=== PATIENT | female | born 1985 | race Caucasian/White ===

== ENCOUNTER 2017-12-26 07:34 | Inpatient (IN) | payer MEDICAID ==
[2017-12-26 08:42] LABS: ADD MAN DIFF? NO
[2017-12-26 08:50] LABS: WHITE BLOOD COUNT 9.7 10^3/ul (4.8-10.8)
[2017-12-26 08:50] LABS: BASOPHILS % 0.3 % (0.0-2.0); EOSINOPHILS # 0.1 10^3/ul (0.0-0.5); EOSINOPHILS % 0.6 % (0.0-7.0); HEMATOCRIT 38.8 % (37.0-47.0); HEMOGLOBIN 12.9 g/dl (12.0-16.0); LYMPHOCYTES # 1.5 10^3/ul (0.8-2.9); LYMPHOCYTES % 15.5 % (15.0-51.0); MEAN CORPUSCULAR HEMOGLOBIN 29.7 pg (29.0-33.0); MEAN CORPUSCULAR HGB CONC 33.2 g/dl (32.0-37.0); MEAN CORPUSCULAR VOLUME 89.2 fl (82.0-101.0); MONOCYTE # 0.5 10^3/ul (0.3-0.9); MONOCYTES % 5.2 % (0.0-11.0); NEUTROPHIL # 7.6 10^3/ul (1.6-7.5); NEUTROPHILS % 77.8 % (39.0-77.0); PLATELET COUNT 245 10^3/UL (140-415); RED BLOOD COUNT 4.35 10^6/ul (4.20-5.40); RED CELL DISTRIBUTION WIDTH 13.2 % (11.5-14.5)
[2017-12-26 08:54] LABS: INR 0.89; PROTIME 12.1 Sec (11.9-14.9); PT RATIO 0.9
[2017-12-26 08:55] LABS: PARTIAL THROMBOPLASTIN TIME 26.2 Sec (25.0-35.0)
[2017-12-26] MEDS ORDERED: KETOROLAC 30 MG INJ IV (09:00)
[2017-12-26] MEDS ORDERED: LIDOCAINE 1% (MPF) 30 ML INJ INJ (09:00)
[2017-12-26] MEDS ORDERED: MISOPROSTOL 200 MCG TAB PR (09:00)
[2017-12-26] MEDS ORDERED: NALOXONE (0.4 MG/ML) INJ IV (09:00)
[2017-12-26] MEDS ORDERED: METHYLERGONOVINE 0.2 MG INJ IM (09:00)
[2017-12-26] MEDS ORDERED: OXYTOCIN 30 UNITS/LR 500 ML IV (09:00)
[2017-12-26] MEDS ORDERED: DIPHENHYDRAMINE 50 MG INJ IV (09:00)
[2017-12-26] MEDS ORDERED: HYDROmorphONE 0.5 MG/0.5 ML SYG IV ×2 (09:00)
[2017-12-26] MEDS ORDERED: ONDANSETRON 4 MG INJ IV (09:00)
[2017-12-26] MEDS ORDERED: CARBOPROST 250 MCG INJ IM (09:00)
[2017-12-26] MEDS ORDERED: ZOLPIDEM 5 MG TAB PO (09:00)
[2017-12-26] MEDS ORDERED: BUTORPHANOL 2 MG INJ IV (09:00)
[2017-12-26] MEDS: LACTATED RINGER'S 1,000 ML IV* (09:01)
[2017-12-26] MEDS: FENTAnyl 2MCG/ML-ROPIV 0.2% 100 ML BAG EPI (09:01)
[2017-12-26 09:44] LABS: HEPATITIS B SURFACE ANTIBODY NEGATIVE (NEGATIVE)
[2017-12-26] MEDS: OXYTOCIN 30 UNITS/LR 500 ML IV ×3 (14:40→18:14)
[2017-12-26] MEDS: LANOLIN 7 GM TUBE TOP (18:29)
[2017-12-26] MEDS: BENZOCAINE 20% 56 ML SPRAY TOP (18:29)
[2017-12-26] MEDS: IBUPROFEN 600 MG TAB PO ×2 (18:29→23:39)
[2017-12-26] MEDS: WITCH HAZEL/GLYCERIN PAD PR (18:30)
[2017-12-26 20:03] LABS: RAPID PLASMA REAGIN NONREACTIVE (NR)
[2017-12-27] MEDS: IBUPROFEN 600 MG TAB PO ×4 (06:35→23:43)
[2017-12-27 08:23] LABS: ADD MAN DIFF? NO
[2017-12-27 08:26] LABS: BASOPHILS % 0.2 % (0.0-2.0); EOSINOPHILS # 0.1 10^3/ul (0.0-0.5); EOSINOPHILS % 0.6 % (0.0-7.0); HEMATOCRIT 28.4 % (37.0-47.0); HEMOGLOBIN 9.4 g/dl (12.0-16.0); LYMPHOCYTES # 1.3 10^3/ul (0.8-2.9); LYMPHOCYTES % 12.8 % (15.0-51.0); MEAN CORPUSCULAR HEMOGLOBIN 29.6 pg (29.0-33.0); MEAN CORPUSCULAR HGB CONC 33.1 g/dl (32.0-37.0); MEAN CORPUSCULAR VOLUME 89.3 fl (82.0-101.0); MEAN PLATELET VOLUME 11.2 fl (7.4-10.4); MONOCYTE # 0.4 10^3/ul (0.3-0.9); MONOCYTES % 4.3 % (0.0-11.0); NEUTROPHIL # 8.2 10^3/ul (1.6-7.5); NEUTROPHILS % 81.5 % (39.0-77.0); PLATELET COUNT 177 10^3/UL (140-415); RED BLOOD COUNT 3.18 10^6/ul (4.20-5.40); RED CELL DISTRIBUTION WIDTH 13.5 % (11.5-14.5)
[2017-12-27 08:26] LABS: WHITE BLOOD COUNT 10.1 10^3/ul (4.8-10.8)
[2017-12-28] MEDS: IBUPROFEN 600 MG TAB PO ×2 (05:47→12:03)
[2017-12-28] MEDS: WITCH HAZEL/GLYCERIN PAD PR (05:47)
[2017-12-28] MEDS: MAGNESIUM HYDROXIDE 30ML CUP PO (09:14)
[2017-12-28] MEDS: FERROUS GLUCONATE (EC) 325 MG TAB PO (12:03)
== END 2017-12-28 15:40 | disposition home or self-care (01) | DRG 775 ==
LOC: OBT 07:34 → L-D 07:34 → OBT 07:35 → L-D 07:35 → PP1 17:15
PROVIDERS: Obstetrics & Gynecology
PROC: 10E0XZZ Delivery of Products of Conception, External Approach (ICD-10-PCS; principal; 2017-12-26)
PROC: 0W8NXZZ Division of Female Perineum, External Approach (ICD-10-PCS; 2017-12-26)
DX: O76 Abnormality in fetal heart rate and rhythm complicating labor and delivery (principal); Z3A.40 40 weeks gestation of pregnancy; Z37.0 Single live birth
CPT/HCPCS: 62319; 85025; 85610; 85730; 86592; 86706; 86900; 86901